=== PATIENT | male | born 1990 | race Caucasian/White ===

== ENCOUNTER 2017-01-06 00:18 | Emergency (ER) | payer BC ==
--- NOTE | 2017-01-06 00:32 | EDPHY ---
H & P Stated Complaint: rash all over body x ~ 24 hrs. tried benadryl, claritin, hydrocortisone crm HPI/ROS: HPI CHIEF COMPLAINT: Rash times 24 hours HISTORY OF PRESENT ILLNESS: This patient very pleasant 26-year-old male, no significant medical history does not take any daily medications he is visiting [facility] from [facility] he is a [employer], presents emergency room with a pruritic rash that is diffusely throughout his entire body. Appears to be urticaria with central clearing. No mucosal lesions no blisters, no fever, no meningeal signs, no particular purpura. No pain. States that he noticed it was itchy yesterday initially on his face that is but does arms chest back legs and now is throughout his entire body. No trouble breathing, no wheezing, no trouble swallowing. He denies any new ingestion. He will be in [facility] for the next 2 days and then he goes back home to [facility]. He has never had anything like this before. Does not remember any specific contacts. He is traveling with a medic with [employer] he was given Benadryl and hydrocortisone cream however this did not help. Past Medical History: No medical history except for a disc herniation in his back Past Surgical History: no recent surgical history Social History: Denies daily use drugs alcohol tobacco products, lives in [facility], will be able to for the next 2 days. Works for the [employer]. Family History: Noncontributory ROS REVIEW OF SYSTEMS: A comprehensive 10 point review of systems is otherwise negative aside from elements mentioned in the history of present illness. Exam Constitutional triage nursing summary reviewed, vital signs reviewed, awake/ alert. Eyes normal conjunctivae and sclera, EOMI, PERRLA. HENT normal inspection, atraumatic, moist mucus membranes, no epistaxis, neck supple/ no meningismus, no raccoon eyes. Respiratory clear to auscultation bilaterally, normal breath sounds, no respiratory distress, no wheezing. Cardiovascular rate normal, regular rhythm, no murmur, no edema, distal pulses normal. Gastrointestinal soft, non-tender, no rebound, no guarding, normal bowel sounds, no distension, no pulsatile mass. Genitourinary no CVA tenderness. Musculoskeletal no midline vertebral tenderness, full range of motion, no calf swelling, no tenderness of extremities, no meningismus, good pulses, neurovascularly intact. Skin diffuse urticaria throughout entire body, some mild eyelid edema upper eyelids, no particular purpura no mucosal lesions, urticaria appears diffuse with central clearing. It is throughout his whole body. Neurologic awake, alert and oriented x 3, AAOx3, moves all 4 extremities equally, motor intact, sensory intact, CN II-XII intact, normal cerebellar, normal vision, normal speech. Psychiatric normal mood/affect. Heme/Lymph/Immune no lymphadenopathy. Differential Diagnosis:Includes but is not limited to in a particular order allergic reaction, diffuse urticaria, vasculitis, doubt infectious cause of rash. Medical Decision Making: Patient did receive IV Solu-Medrol IV fluids Benadryl and Pepcid here no progression of rash however rash not greatly improved. I do believe there was some mild improvement after steroids. Patient is in [place] for the next 2 days I do recommend that if he has worsening symptoms return to the emergency room. I will place him on prednisone, Benadryl and Pepcid p.o. outpatient. When he goes back to [facility] should follow up with his primary care doctor as well as Dermatology. Develops fever feels ill seek medical attention right away. I do think this patient is having urticaria however it is unclear to what.Patient agreeable with this. No further signs of anaphylaxis or airway compromise. Source: Patient - Personal History Current Tetanus/Diphtheria Vaccine: Unsure Current Tetanus Diphtheria and Acellular Pertussis (TDAP): Unsure - Medical/Surgical History Hx Asthma: No Hx Chronic Respiratory Disease: No Hx Diabetes: No Hx Cardiac Disease: No Hx Renal Disease: No Hx Cirrhosis: No Hx Alcoholism: No Hx HIV/AIDS: No Hx Splenectomy or Spleen Trauma: No Other PMH: bulging discs back/neck - Social History Smoking Status: Never smoked Constitutional: Initial Vital Signs Temperature (C) 36.7 C 01/06/17 00:25 Heart Rate 118 H 01/06/17 00:25 Respiratory Rate 16 01/06/17 00:25 Blood Pressure 128/85 H 01/06/17 00:25 O2 Sat (%) 95 01/06/17 00:25 O2 Delivery Mode Room Air Allergies/Adverse Reactions: No Known Allergies Allergy (Unverified 01/06/17 00:25) Home Medications: Medication Instructions Recorded Famotidine [Pepcid 20 MG (*)] 20 mg PO BID #10 tab 01/06/17 diphenhydrAMINE [Benadryl 25 MG 25 mg PO BID PRN #10 tab 01/06/17 (*)] predniSONE 60 mg PO DAILY #15 tab 01/06/17 Medical Decision Making - Data Points Laboratory Results: Laboratory Results 01/06/17 00:50 01/06/17 00:50 01/06/17 01/06/17 00:50 00:50 WBC 14.60 10^3/uL H 10^3/uL (3.80-9.50) RBC 6.21 10^6/uL 10^6/uL (4.40-6.38) Hgb 18.0 g/dL H g/dL (13.7-17.5) Hct 51.7 % H % (40.0-51.0) MCV 83.3 fL fL (81.5-99.8) MCH 29.0 pg pg (27.9-34.1) MCHC 34.8 g/dL g/dL (32.4-36.7) RDW 11.9 % % (11.5-15.2) Plt Count 195 10^3/uL 10^3/uL (150-400) MPV 12.3 fL H fL (8.7-11.7) Neut % (Auto) 75.7 % H % (39.3-74.2) Lymph % (Auto) 17.4 % % (15.0-45.0) [place] % (Auto) 6.3 % % (4.5-13.0) Eos % (Auto) 0.2 % L % (0.6-7.6) Baso % (Auto) 0.1 % L % (0.3-1.7) Nucleat RBC Rel Count 0.0 % % (0.0-0.2) Absolute Neuts (auto) 11.05 10^3/uL H 10^3/uL (1.70-6.50) Absolute Lymphs (auto) 2.54 10^3/uL 10^3/uL (1.00-3.00) Absolute Monos (auto) 0.92 10^3/uL H 10^3/uL (0.30-0.80) Absolute Eos (auto) 0.03 10^3/uL 10^3/uL (0.03-0.40) Absolute Basos (auto) 0.02 10^3/uL 10^3/uL (0.02-0.10) Absolute Nucleated RBC 0.00 10^3/uL 10^3/uL (0-0.01) Immature Gran % 0.3 % % (0.0-1.1) Immature Gran # 0.04 10^3/uL 10^3/uL (0.00-0.10) Sodium 139 mEq/L mEq/L (134-144) Potassium 4.5 mEq/L mEq/L (3.5-5.2) Chloride 103 mEq/L mEq/L (97-110) Carbon Dioxide 23 mEq/l mEq/l (22-31) Anion Gap 13 mEq/L mEq/L (8-16) BUN 17 mg/dL mg/dL (7-23) Creatinine 1.2 mg/dL mg/dL (0.7-1.3) Estimated GFR > 60 Glucose 127 mg/dL H mg/dL (70-100) Calcium 9.4 mg/dL mg/dL (8.5-10.4) Total Bilirubin 0.6 mg/dL mg/dL (0.1-1.4) AST 27 IU/L IU/L (17-59) ALT 41 IU/L IU/L (21-72) Alkaline Phosphatase 107 IU/L IU/L (38-126) Total Protein 7.4 g/dL g/dL (6.3-8.2) Albumin 4.4 g/dL g/dL (3.5-5.0) Medications Given: Discontinued Medications Diphenhydramine HCl (Benadryl Injection) 25 mg IVP EDNOW ONE Stop: 01/06/17 00:37 Last Admin: 01/06/17 00:45 Dose: 25 mg Diphenhydramine HCl (Benadryl Injection) 25 mg IVP EDNOW ONE Stop: 01/06/17 02:08 Last Admin: 01/06/17 02:19 Dose: 25 mg Famotidine (Pepcid) 20 mg IVP EDNOW ONE Stop: 01/06/17 00:37 Last Admin: 01/06/17 00:45 Dose: 20 mg Famotidine (Pepcid) 20 mg IVP EDNOW ONE Stop: 01/06/17 02:08 Last Admin: 01/06/17 02:20 Dose: 20 mg Sodium Chloride (Ns) 1,000 mls @ 0 mls/hr IV ONCE ONE PRN Reason: Wide Open Stop: 01/06/17 00:40 Last Admin: 01/06/17 01:15 Dose: 1,000 mls Methylprednisolone Sodium Succinate (Solu-Medrol) 125 mg IVP EDNOW ONE Stop: 01/06/17 00:37 Last Admin: 01/06/17 00:45 Dose: 125 mg Prednisone (Prednisone) 60 mg PO EDNOW ONE Stop: 01/06/17 02:08 Last Admin: 01/06/17 02:20 Dose: 60 mg Departure - Departure Disposition: Home, Routine, Self-Care Clinical Impression: Urticaria, Rash Condition: Good Instructions: Urticaria (ED) Additional Instructions: 1. Return emergency room immediately if you have further symptoms of allergic reaction or worsening rash. 2. 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 Referrals: NONE *PRIMARY CARE P,. [Primary Care Provider] - As per Instructions Prescriptions: diphenhydrAMINE [Benadryl 25 MG (*)] 25 mg PO BID PRN #10 tab PRN Reason: Itching Famotidine [Pepcid 20 MG (*)] 20 mg PO BID #10 tab predniSONE 60 mg PO DAILY #15 tab
[2017-01-06] MEDS ORDERED: FAMOTIDINE 20 MG/2 ML SDV IVP ONE ×2 (00:36→02:07)
[2017-01-06] MEDS ORDERED: methylPREDNISolone SOD SUCC 125 MG/2 ML VIAL IVP ONE (00:36)
[2017-01-06] MEDS ORDERED: NS 1,000 ML IV ONE (00:39)
[2017-01-06 00:58] LABS: % IMMATURE GRANULYOCYTES 0.3 % (0.0-1.1); ABSOLUTE IMMATURE GRANULOCYTES 0.04 10^3/uL (0.00-0.10); ADD DIFF? NO; ADD MORPH? NO; ADD SCAN? NO; ATYPICAL LYMPHOCYTE FLAG 10 (0-99); FRAGMENT RBC FLAG 0 (0-99); HEMATOCRIT 51.7 % (40.0-51.0); LEFT SHIFT FLG 0 (0-99); LIPEMIA HEMOLYSIS FLAG 90 (0-99); MEAN CELL HEMOGLOBIN CONCENTR. 34.8 g/dL (32.4-36.7); MEAN CELL VOLUME 83.3 fL (81.5-99.8); MEAN PLATELET VOLUME 12.3 fL (8.7-11.7); PLATELET CLUMPS FLAG 0 (0-99); PLATELET COUNT 195 10^3/uL (150-400); RED BLOOD CELL COUNT 6.21 10^6/uL (4.40-6.38); RED CELL DISTRIBUTION WIDTH 11.9 % (11.5-15.2)
[2017-01-06 01:12] LABS: ALANINE AMINOTRANSFERASE 41 IU/L (21-72); ALBUMIN 4.4 g/dL (3.5-5.0); ALKALINE PHOSPHATASE 107 IU/L (38-126); ANION GAP 13 mEq/L (8-16); ASPARTATE AMINOTRANSFERASE 27 IU/L (17-59); BILIRUBIN,TOTAL 0.6 mg/dL (0.1-1.4); CALCIUM 9.4 mg/dL (8.5-10.4); CARBON DIOXIDE 23 mEq/l (22-31); CHLORIDE 103 mEq/L (97-110); CREATININE 1.2 mg/dL (0.7-1.3); GLOMERULAR FILTRATION RATE > 60; GLUCOSE 127 mg/dL (70-100); POTASSIUM 4.5 mEq/L (3.5-5.2); SODIUM 139 mEq/L (134-144); TOTAL PROTEIN 7.4 g/dL (6.3-8.2)
[2017-01-06] MEDS ORDERED: predniSONE 20 MG TAB PO ONE (02:07)
[2017-01-06 03:44] VITALS: BP 112/81; PULSE 110; RESP 18; TEMP 97.9; O2SAT 96
== END 2017-01-06 03:44 | disposition home or self-care (01) ==
DX: L50.9 Urticaria, unspecified (principal)
CPT/HCPCS: 96374; J1200